=== PATIENT | female | born 1975 | race Caucasian/White ===

== ENCOUNTER 2023-01-22 12:11 | Outpatient (CLI) | payer BC | END 2023-01-22 12:12 | disposition home or self-care (01) | LOC: CSHMAMMO 12:11 | PROVIDERS: ATTEND Advanced Practice Midwife | DX: Z12.31 Encounter for screening mammogram for malignant neoplasm of breast (principal) | CPT/HCPCS: 77063; 77067 ==

== ENCOUNTER 2024-04-06 14:55 | Outpatient (CLI) | payer BC | END 2024-04-06 14:56 | disposition home or self-care (01) | LOC: CSHMAMMO 14:55 | PROVIDERS: ATTEND Advanced Practice Midwife | DX: Z12.31 Encounter for screening mammogram for malignant neoplasm of breast (principal) | CPT/HCPCS: 77063; 77067 ==

== ENCOUNTER 2025-04-07 15:04 | Outpatient (CLI) | payer BC | END 2025-04-07 15:05 | disposition home or self-care (01) | LOC: CSHMAMMO 15:04 | PROVIDERS: ATTEND Advanced Practice Midwife | DX: Z12.31 Encounter for screening mammogram for malignant neoplasm of breast (principal); R92.1 Mammographic calcification found on diagnostic imaging of breast; R92.333 Mammographic heterogeneous density, bilateral breasts | CPT/HCPCS: 77063; 77067 ==

== ENCOUNTER 2025-04-08 13:52 | Outpatient (CLI) | payer BC | END 2025-04-08 13:53 | disposition home or self-care (01) | LOC: CSHMAMMO 13:52 | PROVIDERS: ATTEND Advanced Practice Midwife | DX: R92.1 Mammographic calcification found on diagnostic imaging of breast (principal); R92.333 Mammographic heterogeneous density, bilateral breasts | CPT/HCPCS: G0279 ==